=== PATIENT | female | born 1970 | race Hispanic/Latino ===

== ENCOUNTER 2021-04-20 14:06 | Outpatient (RCR) | payer OTHER | END 2021-05-18 | LOC: PT 14:06 | PROVIDERS: ATTEND Specialist | DX: M17.0 Bilateral primary osteoarthritis of knee (principal) ==

== ENCOUNTER 2022-04-21 19:51 | Emergency (ER) | payer OTHER ==
[~2022-04-21] VITALS: Ht 167.6 cm; Wt 113.4 kg
[2022-04-21] MEDS ORDERED: DEXAMETHASONE SOD PHOS 10 MG/1 ML VIAL IM ONE (22:15)
[2022-04-21] MEDS ORDERED: DEXAMETHASONE SOD PHOS 10 MG/1 ML VIAL ONE (22:34)
== END 2022-04-22 00:58 | disposition home or self-care (01) ==
LOC: ER 19:55
DX: M25.562 Pain in left knee (principal); M17.12 Unilateral primary osteoarthritis, left knee
CPT/HCPCS: 99283; J1100

== ENCOUNTER 2022-07-03 07:06 | Observation (INO) | payer OTHER ==
[~2022-07-03] VITALS: Ht 167.6 cm; Wt 113.4 kg
[~2022-07-03 07:06] MED LIST: CYCLOBENZAPRINE10 MG PO; GABAPENTIN300 MG PO; HYDROCHLOROTHIA25 MG PO; LEVOTHYROXINE50 MCG PO
[2022-07-03] MEDS ORDERED: CELECOXIB 200 MG CAP ONE (07:27)
[2022-07-03] MEDS ORDERED: DEXAMETHASONE SOD PHOS 10 MG/1 ML VIAL ONE (07:28)
[2022-07-03] MEDS ORDERED: GABAPENTIN 300 MG CAP ONE (07:28)
[2022-07-03] MEDS ORDERED: SODIUM CHLORIDE 0.9% 500ML 500 ML ONE (07:33)
[2022-07-03] MEDS ORDERED: TRANEXAMIC ACID 20 ML ONE (07:33)
[2022-07-03] MEDS ORDERED: Vancomycin IV 1,000 MG ONE (07:33)
[2022-07-03] MEDS ORDERED: ROPIVACAINE 246.25 MG, EPINEPHRINE HCL 1:1000 1ML 0.5 MG, CLONIDINE HCL 0.08 MG, KETORO... INJ ONE ×5 (08:00)
[2022-07-03] MEDS ORDERED: DOCUSATE SODIUM 100 MG CAP PO PRN (10:15)
[2022-07-03] MEDS ORDERED: HYDROCODONE/APAP 5MG-325MG TAB PO PRN (10:15)
[2022-07-03] MEDS ORDERED: ZOLPIDEM TARTRATE 5 MG TAB PO PRN (10:15)
[2022-07-03] MEDS ORDERED: ACETAMINOPHEN 650 MG SUPP PR PRN (10:15)
[2022-07-03] MEDS ORDERED: DIPHENHYDRAMINE HCL INJ 50 MG/ML VIAL IV PRN (10:15)
[2022-07-03] MEDS ORDERED: FENTANYL CITRATE/PF 100MCG/2 ML INJ ONE ×2 (10:49→12:39)
[2022-07-03] MEDS ORDERED: SEVOFLURANE INHAL SOLN 250 ML PEN BTL ONE (12:28)
[2022-07-03] MEDS ORDERED: PROPOFOL IV EMULSION 10 MG/ML 20 ML VIAL ONE (12:28)
[2022-07-03] MEDS ORDERED: POVIDONE IODINE 0.05% 0.05 % ML PO ONE (12:28)
[2022-07-03] MEDS ORDERED: GLYCOPYRROLATE INJ 0.2 MG/ML VIAL ONE (12:28)
[2022-07-03] MEDS ORDERED: ONDANSETRON HCL INJ 2MG/ML 2ML 2 MG/ML VIAL ONE (12:28)
[2022-07-03] MEDS ORDERED: LIDOCAINE HCL 2% LOCAL INJ 5 ML SDV VIAL INJ ONE (12:28)
[2022-07-03] MEDS ORDERED: ROPIVACAINE 0.5% 5 MG/ML 30 ML SDV ONE (12:36)
[2022-07-03] MEDS ORDERED: MIDAZOLAM HCL 2 MG/2 ML VIAL ONE (12:39)
[2022-07-03 12:45] VITALS: BP 147/99
[2022-07-03 12:52] VITALS: BP 147/99
[2022-07-03] MEDS: SODIUM CHLORIDE 0.9% 1000ML 1,000 ML IV SCH ×2 (13:10→20:15)
[2022-07-03] MEDS: HYDROCODONE/APAP 7.5MG-325MG 1 EA TAB PO PRN ×3 (13:21→21:46)
[2022-07-03] MEDS ORDERED: ACETAMINOPHEN 1000 MG/100 ML IV PRN (14:00)
[2022-07-03] MEDS: KETOROLAC TROMETHAMINE 30 MG/ML VIAL IV PRN (15:10)
[2022-07-03 16:00] VITALS: BP 137/98
[2022-07-03] MEDS: ASPIRIN 325 MG TAB PO SCH (16:35)
[2022-07-03] MEDS: CELECOXIB 100 MG CAP PO SCH (16:38)
[2022-07-03] MEDS: ONDANSETRON HCL INJ 2MG/ML 2ML 2 MG/ML VIAL IV PRN (17:32)
[2022-07-03 20:00] VITALS: BP_SYST 115; BP_DIAS 80; BP_DIAS 83
[2022-07-03 21:00] VITALS: BP 137/98
[2022-07-04] MEDS: ONDANSETRON HCL INJ 2MG/ML 2ML 2 MG/ML VIAL IV PRN ×2 (00:46→08:57)
[2022-07-04] MEDS: KETOROLAC TROMETHAMINE 30 MG/ML VIAL IV PRN (02:46)
[2022-07-04] MEDS: SODIUM CHLORIDE 0.9% 1000ML 1,000 ML IV SCH (02:59)
[2022-07-04] MEDS: HYDROCODONE/APAP 7.5MG-325MG 1 EA TAB PO PRN ×3 (03:20→12:03)
[2022-07-04 04:00] VITALS: BP 121/85
[2022-07-04 05:13] LABS: HEMOGLOBIN 12.5 g/dL (12.0-16.0)
[2022-07-04] MEDS ORDERED: LEVOTHYROXINE SODIUM 100 MCG TAB PO SCH (06:00)
[2022-07-04 07:21] VITALS: BP 128/76
[2022-07-04 08:10] VITALS: BP 128/76
[2022-07-04] MEDS: ASPIRIN 325 MG TAB PO SCH (08:56)
[2022-07-04] MEDS: CELECOXIB 100 MG CAP PO SCH (08:56)
[2022-07-04] MEDS ORDERED: HYDROCHLOROTHIAZIDE 25 MG TAB PO SCH (09:00)
[2022-07-04 12:01] VITALS: BP 123/85
[2022-07-04] MEDS ORDERED: ASPIRIN81 MG PO (13:03)
== END 2022-07-04 14:09 | disposition home or self-care (01) ==
LOC: OR 07:06 → PACU V 10:11 → MED/SURG 11:20
PROVIDERS: ADMIT Specialist; ATTEND Specialist
DX: M17.12 Unilateral primary osteoarthritis, left knee (principal); Z98.84 Bariatric surgery status; Z90.710 Acquired absence of both cervix and uterus; E66.01 Morbid (severe) obesity due to excess calories; Z68.41 Body mass index [BMI] 40.0-44.9, adult; I10 Essential (primary) hypertension; E03.9 Hypothyroidism, unspecified; Z82.49 Family history of ischemic heart disease and other diseases of the circulatory system; D64.9 Anemia, unspecified
CPT/HCPCS: 0223U; 36415; 85014; 85018; 86850; 86900; 86920; 94799; 96361; 97139; C1713; C1776; G0378; J0171; J0690; J1100; J1885; J2001; J2250; J2405; J2795; J3010; J3370; J7030; J7040

== ENCOUNTER 2022-07-20 09:57 | Inpatient (IN) | payer OTHER ==
[~2022-07-20] VITALS: Ht 167.6 cm; Wt 113.4 kg
[~2022-07-20 09:57] MED LIST changes: +ASPIRIN81 MG PO
[2022-07-20] MEDS ORDERED: Vancomycin IV 2 GM in SODIUM CHLORIDE 0.9% 250ML 250 ML IV STA (10:08)
[2022-07-20] MEDS ORDERED: SODIUM CHLORIDE 0.9% 1000ML 1,000 ML IV ONE (10:15)
[2022-07-20] MEDS ORDERED: SODIUM CHLORIDE 0.9% 1000ML 1,000 ML ONE (10:29)
[2022-07-20 10:39] LABS: BASOPHILS # (AUTO) 0.1 (0.0-0.1); BASOPHILS % 1.2 % (0.0-1.0); EOSINOPHILS # (AUTO) 0.3 (0.0-0.4); EOSINOPHILS % 4.9 % (0.0-6.0); HEMOGLOBIN 12.9 g/dL (12.0-16.0); LYMPHOCYTES # (AUTO) 1.3 (1.0-3.2); LYMPHOCYTES % 22.7 % (18.0-39.1); MEAN CORPUSCULAR HGB CONC 33.1 g/dL (31-35); MEAN CORPUSCULAR VOLUME 99.7 fL (81-99); MONOCYTES # (AUTO) 0.5 (0.2-0.8); MONOCYTES % 8.5 % (4.4-11.3); NEUTROPHILS # (AUTO) 3.7 (2.1-6.9); NEUTROPHILS % 62.4 % (38.7-80.0); PLATELET COUNT 369 x10e3/uL (140-360); RED BLOOD COUNT 3.91 x10e6/uL (3.6-5.1); RED CELL DISTRIBUTION WIDTH 13.8 % (11.7-14.4)
[2022-07-20 10:42] LABS: INR 0.95; PROTHROMBIN TIME 13.5 seconds (11.9-14.5)
[2022-07-20 10:43] LABS: PARTIAL THROMBOPLASTIN TIME 36.8 seconds (23.8-35.5)
[2022-07-20 10:51] LABS: ALBUMIN/GLOBULIN RATIO 0.7 (0.8-2.0); ANION GAP 12.6 mmol/L (8-16); CALCIUM 8.7 mg/dL (8.4-10.2); CREATININE, SERUM 0.64 mg/dL (0.57-1.11); POTASSIUM 3.6 mmol/L (3.5-5.1)
[2022-07-20] MEDS ORDERED: CEFEPIME 2 GM in SODIUM CHLORIDE 0.9% 100 ML IV ONE (11:00)
[2022-07-20] MEDS ORDERED: Morphine 4mg INJECTION 4 MG/ML INJ IV ONE (11:30)
[2022-07-20] MEDS ORDERED: ONDANSETRON HCL INJ 2MG/ML 2ML 2 MG/ML VIAL IV ONE (11:30)
[2022-07-20] MEDS ORDERED: SODIUM CHLORIDE 0.9% 1000ML 1,000 ML IV SCH ×2 (12:30→14:30)
[2022-07-20] MEDS ORDERED: BUPIVACAINE HCL 0.25% 10ML MPF VIAL INJ ONE ×2 (13:21)
[2022-07-20] MEDS ORDERED: Vancomycin IV 0 MG ONE (13:22)
[2022-07-20] MEDS ORDERED: Vancomycin IV 1 GM VIAL ONE ×2 (13:22→13:26)
[2022-07-20] MEDS ORDERED: ONDANSETRON HCL INJ 2MG/ML 2ML 2 MG/ML VIAL IV PRN (14:30)
[2022-07-20] MEDS ORDERED: ACETAMINOPHEN 650 MG SUPP PR PRN (14:30)
[2022-07-20] MEDS ORDERED: DIPHENHYDRAMINE HCL INJ 50 MG/ML VIAL IV PRN (14:30)
[2022-07-20] MEDS ORDERED: DOCUSATE SODIUM 100 MG CAP PO PRN (14:30)
[2022-07-20] MEDS ORDERED: HYDROCODONE/APAP 5MG-325MG TAB PO PRN (14:30)
[2022-07-20] MEDS ORDERED: MIDAZOLAM HCL 2 MG/2 ML VIAL ONE (14:37)
[2022-07-20] MEDS ORDERED: FENTANYL CITRATE/PF 100MCG/2 ML INJ ONE ×2 (14:37→15:09)
[2022-07-20] MEDS ORDERED: ONDANSETRON HCL INJ 2MG/ML 2ML 2 MG/ML VIAL ONE ×2 (15:08→17:40)
[2022-07-20] MEDS ORDERED: ACETAMINOPHEN 1000 MG/100 ML IV PRN (16:00)
[2022-07-20] MEDS: HYDROCODONE/APAP 7.5MG-325MG 1 EA TAB PO PRN ×2 (16:14→20:31)
[2022-07-20 16:23] VITALS: BP 136/92
[2022-07-20 16:54] VITALS: BP 146/92
[2022-07-20] MEDS ORDERED: CELECOXIB 100 MG CAP PO SCH (17:00)
[2022-07-20] MEDS ORDERED: SEVOFLURANE INHAL SOLN 250 ML PEN BTL ONE (17:40)
[2022-07-20] MEDS ORDERED: PROPOFOL IV EMULSION 10 MG/ML 20 ML VIAL ONE (17:40)
[2022-07-20] MEDS ORDERED: DEXAMETHASONE SOD PHOS INJ 4 MG/ML SDV ONE (17:40)
[2022-07-20] MEDS ORDERED: METOCLOPRAMIDE HCL 10 MG/2ML VIAL ONE (17:40)
[2022-07-20] MEDS ORDERED: POVIDONE IODINE 0.05% 0.05 % ML PO ONE (17:40)
[2022-07-20] MEDS ORDERED: KETOROLAC TROMETHAMINE 30 MG/ML VIAL ONE (17:40)
[2022-07-20] MEDS ORDERED: ROCURONIUM BROMIDE 10 MG/ML 5ML VIAL IV ONE (17:40)
[2022-07-20 18:02] VITALS: BP 136/92
[2022-07-20 20:00] VITALS: BP 136/92
[2022-07-20 20:34] VITALS: BP 125/92
[2022-07-20] MEDS: Vancomycin IV 1 GM in SODIUM CHLORIDE 0.9% 250ML 250 ML IV SCH (20:34)
[2022-07-20] MEDS: ZOLPIDEM TARTRATE 5 MG TAB PO PRN (21:25)
[2022-07-20] MEDS ORDERED: SODIUM CHLORIDE 0.9% 250ML 250 ML ONE (21:36)
[2022-07-20] MEDS ORDERED: Vancomycin IV 1 GM in SODIUM CHLORIDE 0.9% 250ML 250 ML IV SCH (22:00)
[2022-07-20 23:58] VITALS: BP 99/71
[2022-07-21] VITALS (7 sets, daily range): BP systolic 104–118; BP diastolic 67–75
[2022-07-21] MEDS: HYDROCODONE/APAP 7.5MG-325MG 1 EA TAB PO PRN ×6 (00:26→20:15)
[2022-07-21 06:46] LABS: BASOPHILS # (AUTO) 0.1 (0.0-0.1); BASOPHILS % 0.7 % (0.0-1.0); EOSINOPHILS # (AUTO) 0.1 (0.0-0.4); EOSINOPHILS % 1.2 % (0.0-6.0); HEMATOCRIT 32.2 % (34.2-44.1); HEMOGLOBIN 10.8 g/dL (12.0-16.0); LYMPHOCYTES # (AUTO) 1.4 (1.0-3.2); LYMPHOCYTES % 18.1 % (18.0-39.1); MEAN CORPUSCULAR HGB CONC 33.5 g/dL (31-35); MEAN CORPUSCULAR VOLUME 98.5 fL (81-99); MONOCYTES # (AUTO) 0.5 (0.2-0.8); MONOCYTES % 6.4 % (4.4-11.3); NEUTROPHILS # (AUTO) 5.5 (2.1-6.9); NEUTROPHILS % 73.3 % (38.7-80.0); PLATELET COUNT 347 x10e3/uL (140-360); RED BLOOD COUNT 3.27 x10e6/uL (3.6-5.1); RED CELL DISTRIBUTION WIDTH 13.2 % (11.7-14.4)
[2022-07-21 07:11] LABS: ALBUMIN 2.4 g/dL (3.5-5.0); ALBUMIN/GLOBULIN RATIO 0.7 (0.8-2.0); CALCIUM 8.1 mg/dL (8.4-10.2); CREATININE, SERUM 0.53 mg/dL (0.57-1.11)
[2022-07-21] MEDS: CELECOXIB 200 MG CAP PO SCH ×2 (08:13→17:41)
[2022-07-21] MEDS: Vancomycin IV 1 GM in SODIUM CHLORIDE 0.9% 250ML 250 ML IV SCH (08:14)
[2022-07-21] MEDS: CEFEPIME 2 GM in SODIUM CHLORIDE 0.9% 100 ML IV SCH ×2 (15:39→21:26)
[2022-07-21] MEDS: ZOLPIDEM TARTRATE 5 MG TAB PO PRN ×2 (21:46→21:47)
[2022-07-22] VITALS (8 sets, daily range): BP systolic 115–133; BP diastolic 74–94
[2022-07-22] MEDS: HYDROCODONE/APAP 7.5MG-325MG 1 EA TAB PO PRN ×6 (00:54→22:24)
[2022-07-22] MEDS: CEFEPIME 2 GM in SODIUM CHLORIDE 0.9% 100 ML IV SCH ×3 (04:57→22:23)
[2022-07-22 06:19] LABS: HEMATOCRIT 32.6 % (34.2-44.1); HEMOGLOBIN 10.5 g/dL (12.0-16.0)
[2022-07-22] MEDS: CELECOXIB 200 MG CAP PO SCH ×2 (09:12→16:58)
[2022-07-23] VITALS (8 sets, daily range): BP systolic 118–152; BP diastolic 79–94
[2022-07-23] MEDS: HYDROCODONE/APAP 7.5MG-325MG 1 EA TAB PO PRN ×5 (04:12→21:31)
[2022-07-23] MEDS: CEFEPIME 2 GM in SODIUM CHLORIDE 0.9% 100 ML IV SCH ×3 (06:12→21:31)
[2022-07-23] MEDS ORDERED: MAGNESIUM HYDROXIDE 30 ML UDC PO PRN (08:00)
[2022-07-23] MEDS: CELECOXIB 200 MG CAP PO SCH ×2 (08:14→17:18)
[2022-07-23] MEDS: SENNA-S TABLET PO SCH ×2 (08:38→17:18)
[2022-07-23] MEDS: POLYETHYLENE GLYCOL 3350 17 GM PACK PO SCH ×2 (08:38→17:18)
[2022-07-24] VITALS: BP 132/95
[2022-07-24] MEDS: HYDROCODONE/APAP 7.5MG-325MG 1 EA TAB PO PRN ×4 (01:42→16:25)
[2022-07-24 04:00] VITALS: BP 130/95
[2022-07-24 05:48] LABS: BASOPHILS # (AUTO) 0.1 (0.0-0.1); BASOPHILS % 1.2 % (0.0-1.0); EOSINOPHILS # (AUTO) 0.3 (0.0-0.4); EOSINOPHILS % 6.3 % (0.0-6.0); HEMATOCRIT 35.6 % (34.2-44.1); HEMOGLOBIN 11.5 g/dL (12.0-16.0); LYMPHOCYTES # (AUTO) 2.2 (1.0-3.2); LYMPHOCYTES % 44.5 % (18.0-39.1); MEAN CORPUSCULAR HEMOGLOBIN 32.5 pg (28-32); MEAN CORPUSCULAR HGB CONC 32.3 g/dL (31-35); MEAN CORPUSCULAR VOLUME 100.6 fL (81-99); MONOCYTES # (AUTO) 0.5 (0.2-0.8); MONOCYTES % 9.3 % (4.4-11.3); NEUTROPHILS # (AUTO) 1.9 (2.1-6.9); NEUTROPHILS % 38.3 % (38.7-80.0); PLATELET COUNT 323 x10e3/uL (140-360); RED BLOOD COUNT 3.54 x10e6/uL (3.6-5.1); RED CELL DISTRIBUTION WIDTH 12.7 % (11.7-14.4)
[2022-07-24 06:14] LABS: ANION GAP 12.8 mmol/L (8-16); CALCIUM 8.7 mg/dL (8.4-10.2); CREATININE, SERUM 0.64 mg/dL (0.57-1.11); POTASSIUM 3.8 mmol/L (3.5-5.1)
[2022-07-24] MEDS: CEFEPIME 2 GM in SODIUM CHLORIDE 0.9% 100 ML IV SCH (06:16)
[2022-07-24 08:04] VITALS: BP 123/87
[2022-07-24 08:28] VITALS: BP 123/87
[2022-07-24] MEDS: CELECOXIB 200 MG CAP PO SCH ×2 (08:29→16:24)
[2022-07-24] MEDS: POLYETHYLENE GLYCOL 3350 17 GM PACK PO SCH ×2 (08:30→16:25)
[2022-07-24] MEDS: SENNA-S TABLET PO SCH ×2 (08:30→16:25)
[2022-07-24 11:53] VITALS: BP 127/86
[2022-07-24] MEDS ORDERED: CEFTRIAXONE 2 GM in SODIUM CHLORIDE 0.9% 100 ML IV SCH (12:30)
[2022-07-24 16:00] VITALS: BP 137/87
[2022-07-24] MEDS ORDERED: CELEBREX200 MG PO (18:09)
[2022-07-24] MEDS ORDERED: SENNA-S LAXATI1 EACH PO (18:10)
[2022-07-24] MEDS ORDERED: ONDANSETRON ODT4 MG SL (18:12)
== END 2022-07-24 19:00 | disposition home health service (06) | DRG 920 ==
LOC: ER 10:03 → ERHOLD 12:32 → PACU V 15:40 → MED/SURG3 15:51 → OBSVTOIN 07-21 10:20
PROVIDERS: ADMIT Internal Medicine; ATTEND Internal Medicine
PROC: 02HV33Z Insertion of Infusion Device into Superior Vena Cava, Percutaneous Approach (ICD-10-PCS; 2022-07-20)
PROC: 0J9P00Z Drainage of Left Lower Leg Subcutaneous Tissue and Fascia with Drainage Device, Open Approach (ICD-10-PCS; principal; 2022-07-20 13:40)
PROC: 02HV33Z Insertion of Infusion Device into Superior Vena Cava, Percutaneous Approach (ICD-10-PCS; 2022-07-24)
DX: L76.32 Postprocedural hematoma of skin and subcutaneous tissue following other procedure (principal); L03.116 Cellulitis of left lower limb; T81.41XA Infection following a procedure, superficial incisional surgical site, initial encounter; Z68.41 Body mass index [BMI] 40.0-44.9, adult; E66.01 Morbid (severe) obesity due to excess calories; E03.9 Hypothyroidism, unspecified; D64.9 Anemia, unspecified; J44.9 Chronic obstructive pulmonary disease, unspecified; B96.89 Other specified bacterial agents as the cause of diseases classified elsewhere; F17.200 Nicotine dependence, unspecified, uncomplicated; Y83.8 Other surgical procedures as the cause of abnormal reaction of the patient, or of later complication, without mention of misadventure at the time of the procedure; Z98.84 Bariatric surgery status; Z96.652 Presence of left artificial knee joint; Z20.822 Contact with and (suspected) exposure to COVID-19
CPT/HCPCS: 0223U; 36415; 36569; 71045; 80048; 80053; 83605; 85014; 85018; 85025; 85610; 85651; 85730; 87040; 87071; 87075; 87186; 87205; 99284; G0378; J0690; J0692; J0696; J1100; J1885; J2250; J2270; J2405; J2765; J3010; J3370; J7030; J7050